=== PATIENT | male | born 1940 | race Two or more races ===

== ENCOUNTER 2024-06-30 20:59 | Emergency (ER) | payer OTHER ==
[~2024-06-30] VITALS: Ht 167.6 cm; Wt 52.2 kg
[2024-06-30] MEDS ORDERED: GLUMETZA1000 MG PO (21:17)
[2024-06-30] MEDS ORDERED: LIPITOR40 M1 PO (21:18)
[2024-06-30] MEDS ORDERED: GLIPIZIDE XL10 MG PO (21:18)
[2024-06-30] MEDS ORDERED: ADULT LOW DOSE81 M1 PO (21:18)
[2024-06-30] MEDS ORDERED: MEMANTINE HCL5 MG PO (21:19)
[2024-06-30] MEDS ORDERED: DIPHTH,PERTUSS(ACELL),TET VAC 0.5 ML SYRINGE IM ONE (22:00)
[2024-06-30] MEDS ORDERED: TETANUS & DIPHTHERIA TOX,ADULT 0.5 ML VIAL IM ONE (22:00)
== END 2024-06-30 22:55 | disposition home or self-care (01) ==
LOC: ER 20:59
DX: S01.112A Laceration without foreign body of left eyelid and periocular area, initial encounter (principal); W18.39XA Other fall on same level, initial encounter; Y93.89 Activity, other specified; Y92.59 Other trade areas as the place of occurrence of the external cause; Y99.9 Unspecified external cause status; I10 Essential (primary) hypertension; E11.9 Type 2 diabetes mellitus without complications; Z79.84 Long term (current) use of oral hypoglycemic drugs
CPT/HCPCS: 12013; 70450; 96372; 99284; J3490

== ENCOUNTER 2024-07-11 11:02 | Emergency (ER) | payer OTHER ==
[~2024-07-11] VITALS: Ht 167.6 cm; Wt 50.8 kg
[~2024-07-11 11:02] MED LIST: ADULT LOW DOSE81 M1 PO; GLIPIZIDE XL10 MG PO; GLUMETZA1000 MG PO; LIPITOR40 M1 PO; MEMANTINE HCL5 MG PO
== END 2024-07-11 13:09 | disposition home or self-care (01) ==
LOC: ER 11:04
DX: Z48.02 Encounter for removal of sutures (principal); S01.112A Laceration without foreign body of left eyelid and periocular area, initial encounter